=== PATIENT | male | born 1985 | race Caucasian/White ===

== ENCOUNTER → 2020-07-08 | Outpatient (CLI) | payer OTHER | LOC: KOH-I 15:15 | DX: S46.211A Strain of muscle, fascia and tendon of other parts of biceps, right arm, initial encounter (principal) | CPT/HCPCS: 73218 ==

== ENCOUNTER 2020-10-06 07:03 | Emergency (ER) | payer BC ==
[2020-10-06 07:37] LABS: HEMOGLOBIN 15.2 gm/dl (14.0-17.5); RED BLOOD COUNT 6.04 M/UL (4.20-5.50); WHITE BLOOD COUNT 7.9 K/UL (4.5-11.0)
[2020-10-06 07:59] LABS: BUN/CREATININE RATIO 17 (0-10)
[2020-10-06] MEDS ORDERED: ASPIRIN CHEWABL81 MG PO (11:07)
== END 2020-10-06 11:20 | disposition home or self-care (01) ==
LOC: ER1 07:03
PROVIDERS: Emergency Medicine
DX: R07.89 Other chest pain (principal); F17.290 Nicotine dependence, other tobacco product, uncomplicated
CPT/HCPCS: 71045; 80053; 82550; 82553; 83735; 83874; 84484; 85025; 93005; 99285